=== PATIENT | male | born 1950 | race Caucasian/White ===

== ENCOUNTER → 2017-02-01 | Outpatient (CLI) | payer BC ==
[~2017-02-01] MED LIST: ASPIR 8181 MG PO; BACITRACIN15 G1 TP; BENTYL-DPS10 MG PO; BETADINE30 ML TP; CARTIA XT120 MG PO; CINNAMON3.7 ML PO; CLARITIN10 M2 PO; CO Q-10200 MG PO; COLACE-DPS100 MG PO; COQ-1030 MG PO; CUTIVATE NS; FISH OIL PO; FLOMAX DPS0.4 MG PO; GEMFIBROZIL600 MG PO; GLIPIZIDE XL5 MG PO; GLUCOPHAGE XR500 MG PO; HYDROCODON-ACE1 EAC2 PO; LIPITOR DPS40 MG PO; MULTAQ400 MG PO; NEXIUM40 MG PO; PERCOCET 5-3251 EACH PO; SINGULAIR10 MG PO; TYLENOL DPS325 MG PO; VALIUM-DPS5 MG PO; XANAX DPS0.25 MG PO; XARELTO20 MG PO
== END | disposition home or self-care (01) ==
LOC: PTH.S 07:28
DX: Z01.818 Encounter for other preprocedural examination (principal)

== ENCOUNTER 2017-02-06 07:12 | Inpatient (IN) | payer BC ==
[~2017-02-06] VITALS: Ht 177.8 cm; Wt 91.4 kg
--- NOTE | ~2017-02-06 | DS ---
ADMIT: 02/06/2017 RM/LOC: [facility] MR#: [id number] [facility]#: [id number] [address] [facility] [address] [place], [place] [id number] LORIN ARAUZ [address] [place] [address] General Discharge Summary SEX: M AGE: 66 : 1950 ADMISSION DATE: 02/06/2017 DISCHARGE DATE: 02/10/2017 SERVICE: Neurosurgery. REASON FOR ADMISSION: 1. Myelomalacia of cervical cord. 2. Cervical stenosis. 3. Cervical spondylosis with myelopathy and radiculopathy. PROCEDURES: Cervical 3 through 7 laminectomy and fusion. HOSPITAL COURSE: Mr. Arauz tolerated his procedure well. Postoperatively, he was taken to the Med/Surg floor for monitoring and care. Postop day #1, his vital signs were stable. He was awake and alert. He was moving all extremities x4. His dressing was clean, dry, and intact. His RONI drain was patent with serosanguineous drainage. He was having quite a bit of hiccups. He did work with Physical Therapy and Occupational Therapy. Postop day #2, he was awake and alert. He was afebrile. His vital signs were stable. He was moving all extremities x4 with 5/5 strength. He was complaining of numbness and tingling to his fingers bilaterally after he had been up and walking. He did complain of significant neck pain into his shoulders when he was up and moving, but no pain when he was in bed. He was complaining of a headache. His hiccups had resolved. His incision was clean, dry, and intact. His RONI drain was patent with serosanguineous drainage. His pain medication was adjusted for him. He did continue to work with Physical Therapy and Occupational Therapy and tolerated this quite well. Postop day #3, he was awake and alert, he was afebrile, his vital signs were stable. He was moving all extremities x4. The pain in his neck and shoulder had improved. His incision was clean, dry, and intact. His RONI drain had decreased serosanguineous drainage, therefore was discontinued without difficulty. He did report his pain was better controlled. He continued to work with Physical Therapy and Occupational Therapy. Postop day #4, he was awake and alert and oriented x4. He was moving all extremities x4. His incision was clean, dry, and intact. No hematoma. Cerebrospinal fluid accumulation was noted. He was dismissed home. He was having some urinary retention and a Hinojosa catheter was placed for dependent drainage and he was going to follow up with Urology as an outpatient. He was ambulating and defecating per his norm and was requesting discharge home. DISCHARGE CONDITION: Good. MEDICATIONS: 1. Colace 100 mg p.o. b.i.d. 2. Bacitracin ointment to his incision q.p.m. 3. Percocet 5/325, 1-2 p.o. q.4 hours p.r.n. 4. Tylenol 650 mg p.o. q.4 hours p.r.n. 5. Valium 5 mg p.o. q.6 hours p.r.n. 6. Alprazolam 0.25 mg b.i.d. p.r.n. 7. Diltiazem ER 120 mg daily. ADMIT: 02/06/2017 RM/LOC: 524 [facility] MR#: [id number] [address] [place] [id number] LORIN ARAUZ [address] [place] [address] General Discharge Summary SEX: M AGE: 66 : 1950 8. Aspirin 81 mg daily may restart on 02/11/2017. 9. Dronedarone 400 mg b.i.d. 10.Esomeprazole 40 mg b.i.d. 11.Fluticasone 50 mcg two sprays daily. 12.Lovastatin 40 mg daily. 13.Metformin ER 500 mg daily. 14.Montelukast 10 mg daily. 15.Rivaroxaban 20 mg daily, may restart on 02/11/2017. 16.Tamsulosin 0.4 mg daily. 17.CoQ-10, 400 mg daily. 18.Dicyclomine 10 mg q.i.d. p.r.n. 19.Betadine to incision q.a.m. DISCHARGE INSTRUCTIONS: Per Dr. Bowman, he can have a regular diet. He may shower, he should not take any tub baths, he should pat his incision dry. He should not lift, push, or pull anything greater than 15 pounds. He should not take any NSAIDs. He should not drive until he is seen in clinic. He should leave his incision open to air. He should follow up with Urology in 1 week. He will call with any questions or concerns including neurological worsening, signs or symptoms infection, or any other issues. FOLLOWUP: He will follow up with Simona in clinic in 2 weeks. DISPOSITION: He was discharged home. Total [id number] time for the discharge planning, care coordination was 30 minutes. Simona Newberry APRN / Jeremias Bowman MD / makayla JOB #: [id number] CC: Jeremias Bowman MD, Attending Physician Cash Mcmahon MD, Family Physician
[~2017-02-06 07:12] MED LIST changes: -BACITRACIN15 G1 TP; -BENTYL-DPS10 MG PO; -BETADINE30 ML TP; -CO Q-10200 MG PO; -COLACE-DPS100 MG PO; -FLOMAX DPS0.4 MG PO; -GLUCOPHAGE XR500 MG PO; -PERCOCET 5-3251 EACH PO; -SINGULAIR10 MG PO; -TYLENOL DPS325 MG PO; -VALIUM-DPS5 MG PO; -XANAX DPS0.25 MG PO
--- NOTE | 2017-02-10 10:01 | OR ---
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 PROCEDURE: 1. Wide cervical laminectomy and partial medial facetectomy over the foramen for foraminal decompression at cervical C3-C4, C4-C5, C5-C6, and C6-C7. 2. Placement of posterior lateral mass screws, cervical C3, C4, C5, C6, and C7, utilizing DePuy [employer]s instrumentation with posterior segmental instrumentation at the same levels. 3. [place] of autograft through same incision with morcellation and admixture with allograft from a cadaveric specimen for implantation to the posterolateral recesses after decortication. 4. Posterior cervical arthrodesis at C3, C4, C5, C6, and C7. 5. Intraoperative fluoroscopy physician interpretation of films. 6. Intraoperative neuromonitoring with no change from baseline at the end of the case. DESCRIPTION OF PROCEDURE: After gaining informed consent, the patient was taken to the operative theater, placed in general endotracheal anesthesia very cautiously. Time-out utilized to ascertain the correct site and side of surgery as well as other pertinent patient historical information. Counts were obtained at the beginning and end of the case. No change betwixt the two. Antibiotics were given before 1 hour of incision. The [place] headrig sawyer was placed at 80 pounds of pressure and the patient was very cautiously turned and properly padded and locked to the Krishna frame in prone position. Incision was fashioned in the midline of the posterior spinous, then taken down to the nuchal fascia which was incised and then taken down through the midline avascular plane. The spinous processes were accounted. They were severely degenerated themselves with bony excrescences. Subperiosteal dissection was taken down over top of the cervical C3, C4, C4, C6 and V7 lateral masses. They are severely degenerated at multiple levels with bony outgrowth causing differentiation of the levels to be difficult initially before gardening this aspect and flattening things out to more natural appearance and being able to evaluate the facet joints. Self-retaining retractors were then placed. At this point, lateral mass screws were placed 1 mm inferomedial to the geographic center of the lateral mass was decorticated, and then hand-drilled, sounded and vancomycin powder-coated lateral mass screws were then placed at the cervical C3, C4, C4, C6 and C7 bilaterally. Once this was done, attention was then turned to the laminectomy. There was no sign of complication at this point. The lamina facet junction shading toward the facets side, especially over the foramen was drilled down, ADMIT: 02/06/2017 RM/LOC: W.03 [facility] MR#: [id number] [address] [place] [id number] [facility] [place] [address] Operative/Delivery Room Report SEX: M AGE: 66 : 1950 decorticated internally, although this was not possible at every level due to the angle that would be changing angle of the severely arthritic facets. Once these were freed up as much as possible including laminectomy, the inferior half of cervical 3 and superior half of 7 for C3-4, C4-5, C5-6, and C6-7 laminectomy. Once this was completed, was prepared to be taken up, although there are still some bony areas that would not release. These were very cautiously drilled and then bitten with some punch rongeur. The dura was severely compressed especially at cervical 3-4 and 4-5 with scarred down on the right at the lateral aspect. At this point, a very tiny and incidental durotomy was noted. This was oversewn with a piece of paraspinous musculature and 4-0 Nurolon without sign of further leakage. At this time, the laminectomy was completed with no sign of complication to the spinal cord or nerve roots. Once this was completed, some significant bleeding from the previously-severely compressed and now decompressed Blaze's plexus was bipolar electrocauterized and hemostatic agents were placed. Once all this was completed and Pristine hemostasis had been obtained with no sign of cerebrospinal fluid leakage at this point, the posterior instrumentation was placed; placing rods, set screws and cross connectors and torquing to appropriate settings being very cautious, did not incur any movement into the spinal canal. At the conclusion of this, the thecal sac showed no sign of leakage. There was no sign of changes in neurological monitoring evaluation. Pristine hemostasis was obtained and DuraGen and DuraSeal were placed over top of the prior dural rent. The autograft harvested from the laminectomy was morcellated and reimplanted with allograft in the posterolateral recesses. At this time, we prepared for closure. A RONI drain was daylighted out and the nuchal fascia was closed with simple running 0 Ethibond as well as simple interrupted 0 Vicryl, simple inverted interrupted 2-0 Vicryl was used in the hypodermic tissue and subcuticular 3-0 Stratafix with Steri-Strips over that in the skin. SPECIMEN: None. ESTIMATED BLOOD LOSS: 700 mL. DISPOSITION: Extubated and taken to postanesthesia care unit. RECRUITER COORDINATOR: Simona Newberry APRN. Ms. Newberry assisted with suction and retraction throughout the case. Jeremias Bowman MD/ makayla JOB #: [id number] CC: Jeremias Bowman, Attending Physician Cash Mcmahon, Family Physician
[2017-02-11] MEDS ORDERED: XANAX DPS0.25 MG PO (17:00)
[2017-02-11] MEDS ORDERED: FLOMAX DPS0.4 MG PO (17:01)
[2017-02-11] MEDS ORDERED: GLUCOPHAGE XR500 MG PO (17:01)
[2017-02-11] MEDS ORDERED: SINGULAIR10 MG PO (17:01)
[2017-02-11] MEDS ORDERED: CO Q-10200 MG PO (17:02)
[2017-02-11] MEDS ORDERED: BENTYL-DPS10 MG PO (17:03)
[2017-02-11] MEDS ORDERED: COLACE-DPS100 MG PO (17:03)
[2017-02-11] MEDS ORDERED: BACITRACIN15 G1 TP (17:04)
[2017-02-11] MEDS ORDERED: BETADINE30 ML TP (17:04)
[2017-02-11] MEDS ORDERED: PERCOCET 5-3251 EACH PO (17:04)
[2017-02-11] MEDS ORDERED: TYLENOL DPS325 MG PO (17:04)
[2017-02-11] MEDS ORDERED: VALIUM-DPS5 MG PO (17:05)
== END 2017-02-10 11:55 | disposition home or self-care (01) | DRG 472 ==
LOC: WOR 07:12 → 5MS 07:12
PROVIDERS: ADMIT Neurological Surgery
PROC: 0RG207J Fusion of 2 or more Cervical Vertebral Joints with Autologous Tissue Substitute, Posterior Approach, Anterior Column, Open Approach (ICD-10-PCS; principal; 2017-02-06)
DX: M47.12 Other spondylosis with myelopathy, cervical region (principal); G95.89 Other specified diseases of spinal cord; E11.42 Type 2 diabetes mellitus with diabetic polyneuropathy; I10 Essential (primary) hypertension; K22.70 Barrett's esophagus without dysplasia; E78.2 Mixed hyperlipidemia; K21.9 Gastro-esophageal reflux disease without esophagitis; F17.220 Nicotine dependence, chewing tobacco, uncomplicated; Z79.84 Long term (current) use of oral hypoglycemic drugs; Z79.82 Long term (current) use of aspirin

== ENCOUNTER → 2017-04-08 | Outpatient (CLI) | payer BC ==
[~2017-04-08] MED LIST changes: +BACITRACIN15 G1 TP; +BENTYL-DPS10 MG PO; +BETADINE30 ML TP; +CO Q-10200 MG PO; +COLACE-DPS100 MG PO; +FLOMAX DPS0.4 MG PO; +GLUCOPHAGE XR500 MG PO; +PERCOCET 5-3251 EACH PO; +SINGULAIR10 MG PO; +TYLENOL DPS325 MG PO; +VALIUM-DPS5 MG PO; +XANAX DPS0.25 MG PO
== END | disposition home or self-care (01) ==
LOC: RAD.S 07:50
PROC: BP38YZZ Magnetic Resonance Imaging (MRI) of Right Shoulder using Other Contrast (ICD-10-PCS; principal; 2017-04-08)
DX: M25.511 Pain in right shoulder (principal); M48.00 Spinal stenosis, site unspecified; Z98.890 Other specified postprocedural states